=== PATIENT | male | born 1930 | race Two or more races ===

== ENCOUNTER 2018-02-20 14:10 | Outpatient (CLI) | payer OTHER ==
[~2018-02-20 14:10] MED LIST: ALPHAGAN P5 M1 OP; AMILODIPINE PO; PREVASTATIN PO; SYNTHROID125 MCG PO
== END 2018-02-20 14:25 | disposition home or self-care (01) ==
LOC: SONOGRAMA 14:10
DX: C61 Malignant neoplasm of prostate (principal)